=== PATIENT | male | born 2000 | race Caucasian/White ===

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

== ENCOUNTER 2024-12-21 11:09 | Emergency (ER) | payer BC, SELFPAY ==
--- OUTSIDE RECORDS SUMMARY | 2024-12-21 11:15 | XMS_ITS | Clinical Summary ---
Author Organization [facility] Address [address] [place] [address] Care Team Providers Care Product Support Rep Name Role Phone Thuy Naylor NP Primary Care Provider Santhosh Gray NP Unavailable Wei Iqbal MD Unavailable Allergies No known active allergies Medications famotidine (PEPCID) 10 mg tablet Take 1 tablet (10 mg total) by mouth 2 (two) times a day as needed for heartburn Active turmeric root extract 500 mg capsule Take 1 capsule by mouth daily Active mupirocin (BACTROBAN) 2 % ointment Coat inside of both nostrils twice daily for 5 days before surgery. 22 g 5 Active chlorhexidine (HIBICLENS) 4 % external liquidIndication s:Skin Disinfection Shower with soap daily for 5 days before surgery including the morning of. Do not use on face or genital area. 120 mL 5 Active gabapentin (NEURONTIN) 300 mg capsuleIndicatio ns:Chronic pain syndrome TAKE 1 CAPSULE(300 MG) BY MOUTH THREE TIMES DAILY 90 capsule 5 5 Active multivitamin with iron tablet Take 1 capsule by mouth daily Active buprenorphine (Belbuca) 300 mcg film buccal filmIndications: Chronic pain syndrome Apply 1 each (300 mcg total) to cheek every 12 (twelve) hours 60 each 1 5 02/02/20 25 Active HYDROcodone-acet aminophen (NORCO) 5-325 mg per tabletIndication s:Pain Take 1 tablet by mouth every 12 (twelve) hours as needed for pain 60 tablet 5 01/03/20 25 Active buprenorphine (Belbuca) 300 mcg film buccal filmIndications: Chronic pain syndrome Apply 1 each (300 mcg total) to cheek every 12 (twelve) hours 60 each 1 5 12/04/19 25 Discontin ued(Reord er) HYDROcodone-acet aminophen (NORCO) 5-325 mg per tabletIndication s:Pain Take 1 tablet by mouth every 12 (twelve) hours as needed for pain 60 tablet 5 12/04/19 25 Discontin ued(Thera py completed ) HYDROcodone-acet aminophen (NORCO) 5-325 mg per tabletIndication s:Pain Take 1 tablet by mouth every 12 (twelve) hours as needed for pain 60 tablet 5 12/04/19 25 Discontin ued(Thera py completed ) Active Problems Problem Noted Date Diagnosed Date Chronic pain syndrome 08/13/2024 Sacroiliitis 01/01/2023 Chronic bilateral low back pain without sciatica 09/06/2021 Resolved Problems Problem Noted Date Diagnosed Date Resolved Date Myalgia 11/21/2021 07/24/2024 Lumbar facet joint syndrome 03/21/2021 07/24/2024 Low back strain 11/17/2020 07/24/2024 Thoracic back pain 11/17/2020 5 Encounters Date Type Department Care Team Description 12/03/2024 2:15 PM CDT - 12/03/2024 11:59 PM CDT Hospital Encounter [facility] [address] [place] [id number] Santhosh Gray NP Sacroiliitis (Primary Dx); Chronic pain syndrome Discharge Disposition: Discharge to home or self care 11/17/2024 Telephone [facility] [address] [place] [id number] Clari Fernandez, RN PA for Belbuca approved til Nov 17, 2025 11/10/2024 Orders Only [facility] Medicine Neurosurgery [address] [facility] Medical Office Building [address] [place] [address] Yari Heart NP Low back pain, unspecified back pain laterality, unspecified chronicity, unspecified whether sciatica present (Primary Dx) 11/10/2024 Telephone [facility] Medicine Scheduling [address] [place] [address] Adelaide Doan 11/07/2024 Documentation [facility] [address] [place] [phone] Jay Fung NP referral (SI joint fusion) 11/05/2024 2:28 PM CDT - 11/05/2024 11:59 PM CDT Hospital Encounter [facility] [address] [place] [phone] Wei Iqbal MD Sacroiliitis Discharge Disposition: Discharge to home or self care 11/04/2024 3:14 PM CDT - 11/04/2024 4:47 PM CDT Emergency [facility] Emergency Department [address] [place] [address] Discharge Disposition: Left without being seen 10/23/2024 1:00 PM CDT - 10/23/2024 11:59 PM CDT Hospital Encounter [facility] [address] [place] [phone] Jay Fung NP Sacroiliitis (Primary Dx) Discharge Disposition: Discharge to home or self care 10/15/2024 Telephone [facility] [address] [place] [phone] Wei Iqbal MD 10/15/2024 Telephone [facility] [address] [place] [phone] Wei Iqbal MD 10/08/2024 2:30 PM CDT - 10/08/2024 11:59 PM CDT Hospital Encounter [facility] [address] [place] [phone] Santhosh Gray NP Chronic pain syndrome (Primary Dx); Sacroiliitis Discharge Disposition: Discharge to home or self care 09/23/2024 Telephone [facility] [address] [place] [phone] Talya Farley 09/22/2024 Telephone [facility] [id number] [place] [address] Tamanna Garza MA from Last 3 Months Surgical History Surgery Date Site/Laterality Comments APPENDECTOMY Medical History Medical History Date Comments GERD (gastroesophageal reflux disease) Chronic pain Motion sickness Sacroiliitis Social History Tobacco Use Types Packs/Day Years Used Date Smoking Tobacco: Never Passive Smoke Exposure: Never Smokeless Tobacco: Never Tobacco Cessation:Counseling Given: Not Answered Alcohol Use Standard Drinks/Week Comments Never 0 (1 standard drink = 0.6 oz pur e alcohol) AUDIT-C Answer Date Recorded Q1: How often do you have a drink containing alcohol? Never 10/13/2024 Q2: How many drinks containi ng alcohol do you have on a typical day when you are drinking? Patient does not drink Q3: How often do you have si x or more drinks on one occasion? Never 10/13/2024 Personal Safety Answer Date Recorded Have you ever been in or are you currently in a harmful physical or emotional relationship or is someone making you feel afraid or unsafe? 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 Gender Identity Not on file Sexual Orientation Not on file Last Filed Vital Signs Vital Sign Reading Time Taken Comments Blood Pressure 133/97 12/03/2024 2:23 PM CDT advised to discuss with PCP Pulse 73 12/03/2024 2:23 PM CDT Temperature 36.7 C (98 F) 11/05/2024 2:39 PM CDT Respiratory Rate 16 12/03/2024 2:23 PM CDT Oxygen Saturation 99% 12/03/2024 2:2 3 PM CDT Inhaled Oxygen Concentration - - Weight 81.6 kg (180 lb) 11/04/2024 3:34 PM CDT Height 177.8 cm (5' 10) 07/24/2024 7:5 0 AM CDT Body Mass Index 25.83 07/24/2024 7:50 AM CDT Plan of Treatment Health Maintenance Due Date Last Done Comments Depression Screening 2001 Hepatitis C Screening 2001 HPV Vaccines (2 - Male 3-dose series) 11/29/2018 11/01/2018 Regular Well Visit/Exam 18-64 2019 Meningococcal B Vaccine (2 of 2 - Bexsero SCDM 2-dose series) 05/02/2019 11/01/2018 DTaP/Tdap/Td Vaccine (7 - Td or Tdap) 09/13/2022 09/13/2012, 10/02/2005, 08/26/2002, Additional history exists Influenza Vaccine (#1) 2024 11/16/2020 Hepatitis B Screening Completed 08/26/2002 , 2001, 2001 Varicella Vaccines Completed 11/01/2018, 04/14/2002 Pneumococcal vaccine <65 Aged Out No longer eligible based on patient's age to complete this topic Procedures Procedure Name Priority Date/Time Associated Diagnosis Comments PAIN MGMT IMAGING SI JOINT BILATERAL ARTHROGRPHY Schedule Routine, Read Routine (OP Routine) 11/05/2024 3:20 PM CDT Sacroiliitis EGFR STAT 11/04/2024 3:39 PM CDT DIFFERENTIAL AUTO STAT 11/04/2024 3:3 9 PM CDT LIPASE STAT 11/04/2024 3:39 PM CDT COMPREHENSIVE METABOLIC PANEL STAT 11/04/2024 3:39 PM CDT CBC WITH AUTO DIFFERENTIAL STAT 11/04/2024 3:39 PM CDT from Last 3 Months Results * Imaging SI Joint Injection Bilateral ([id number]) (11/05/2024 3:20 PM CDT) Narrative RAD_PACS_CH - 11/05/2024 3:24 PM CDT The images from this study are not interpreted by Radiology. Please refer to the physician's procedure / OR operative note. us Jay Fung PLANT WORKER IMG PAIN MGMT PROCEDURES F inal Result RAD_PACS_CH * eGFR (11/04/2024 3:39 PM CDT) eGFR >90 >=60 mL/min/1. 73 m2 Comment: Interpretive Data Reference Interval Normal >/= 90 mL/min/1.73m2 Mildly decreased* 60 - 89 mL/min/1.73m2 Mildly to moderately decreased 45 - 59 mL/min/1.73m2 Moderately to severely decreased 30 - 44 mL/min/1.73m2 Severely decreased 15 - 29 mL/min/1.73m2 Kidney Failure < 15 mL/min/1.73m2 *Relative to young adult level Estimated glomerular filtration rate is determined by the 2020 CKD-EPI equation recommended by the National Kidney Foundation (A Unifying Approach to GFR Estimation: Recommendations of the NKF-ASK Task Force on Reassessing the Inclusion of Race in Diagnosing Kidney Disease, JASN 2020). The CKD-EPI equation should not be used for patients with unstable renal function and has not been validated in children and those over 70. Current interpretive data was last reviewed 2020. Blood 11/04/2024 3:39 PM CDT 11/04/2024 4:57 PM CDT us Yolis [facility] LAB BLOOD ORDERABLES Clementina clemente Result [facility] ([place]) [address] [facility] Department [place] [address] * Differential, auto (11/04/2024 3:39 PM CDT) Pathologist [facility] Neutrophil abs 2.46 1.50 - 6.50 K/cumm Imm gran abs 0.01 0.00 - 0.10 K/cumm [facility] ([facility]) Lymphocyte abs 2.68 0.80 - 3.30 K/cumm [facility] ([place]) Monocyte abs 0.41 0.20 - 0.80 K/cumm [facility] ([place]) Eosinophil abs 0.20 0.00 - 0.50 K/cumm [facility] ([place]) Basophil abs 0.10 0.00 - 0.10 K/cumm [facility] ([place]) Neutrophil pct 42.0 % [facility] ([place]) Comment: Interpretive Data Percent cell count reference ranges are not reported, since discordance with absolute values may lead to misinterpretation of CBC data. Current Interpretive Data was last revised on 2017. Imm gran pct 0.2 % [facility] ([place]) Comment: Interpretive Data Percent cell count reference ranges are not reported, since discordance with absolute values may lead to misinterpretation of CBC data. Current Interpretive Data was last revised on 2017. Lymphocyte pct 45.7 % [facility] ([place]) Comment: Interpretive Data Percent cell count reference ranges are not reported, since discordance with absolute values may lead to misinterpretation of CBC data. Current Interpretive Data was last revised on 2017. Monocyte pct 7.0 % [facility] ([place]) Comment: Interpretive Data Percent cell count reference ranges are not reported, since discordance with absolute values may lead to misinterpretation of CBC data. Current Interpretive Data was last revised on 2017. Eosinophil pct 3.4 % [facility] ([place]) Comment: Interpretive Data Percent cell count reference ranges are not reported, since discordance with absolute values may lead to misinterpretation of CBC data. Current Interpretive Data was last revised on 2017. Basophil pct 1.7 % [facility] ([place]) Comment: Interpretive Data Percent cell count reference ranges are not reported, since discordance with absolute values may lead to misinterpretation of CBC data. Current Interpretive Data was last revised on 2017. Blood 11/04/2024 3:39 PM CDT 11/04/2024 4:57 PM CDT us Yolis [facility] LAB BLOOD ORDERABLES Clementina l Result [facility] ([place]) [address] [facility] Department [place] [address] * CBC with auto differential (11/04/2024 3:39 PM CDT) WBC 5.86 3.80 - 9.90 K/cumm Hgb 15.5 13.0 - 17.5 g/dL [facility] ([place]) Hct 44.7 38.9 - 50.3 % [facility] ([place]) Plt 255 150 - 400 K/cumm [facility] ([place]) MPV 9.7 9.1 - 12.3 fL [facility] ([place]) RBC 5.11 4.30 - 5.80 M/cumm [facility] ([place]) MCV 87.5 81.3 - 96.4 fL [facility] ([place]) MCH 30.3 27.1 - 33.3 pg [facility] ([place]) MCHC 34.7 32.3 - 35.7 g/dL [facility] ([place]) RDW CV 11.9 11.1 - 14.9 % [facility] ([place]) RDW SD 38.3 35.7 - 48.1 fL [facility] ([place]) NRBC abs 0.00 0.00 - 0.01 K/cumm [facility] ([place]) Blood 11/04/2024 3:39 PM CDT 11/04/2024 4:57 PM CDT Yolis [facility] LAB BLOOD ORDERABLES Clementina l Result [facility] ([place]) [address] [facility] [place] [address] * Lipase (11/04/2024 3:39 PM CDT) Lipase 37 10 - 99 Units/L [facility] ([place]) Blood 11/04/2024 3:39 PM CDT 11/04/2024 4:57 PM CDT Yolis [facility] LAB BLOOD ORDERABLES Clementina l Result [facility] ([place]) [address] [facility] [place] [address] * (ABNORMAL) Comprehensive metabolic panel (11/04/2024 3:39 PM CDT) Sodium 142 135 - 145 mmol/L [facility] ([place]) Potassium, pl 4.1 3.3 - 4.9 mmol/L [facility] ([place]) Chloride 105 97 - 110 mmol/L [facility] ([place]) CO2 24 22 - 32 mmol/L [facility] ([place]) Anion gap 13 2 - 15 mmol/L [facility] ([place]) BUN 9 6 - 25 mg/dL [facility] ([place]) Creatinine 0.75(L) 0.80 - 1.30 mg/dL [facility] ([place]) Glucose 89 70 - 199 mg/dL [facility] ([place]) Comment: Interpretive Data Fasting glucose >/= 126 mg/dl is diagnostic for diabetes. Fasting is defined as no caloric intake for at least 8 hours. Fasting glucose between 100 mg/dl to 125 mg/dl is diagnostic of prediabetes. In a patient with classic symptoms of hyperglycemia or hyperglycemic crisis, a random glucose >/= 200 mg/dl is diagnostic for diabetes. In the absence of unequivocal hyperglycemia, results should be confirmed by repeat testing. The classification and Diagnosis of Diabetes Diabetes Care 202; 46: S19-S40. Current interpretive data was last revised 2022. Calcium 9.8 8.5 - 10.3 mg/dL [facility] ([place]) Bilirubin, total 0.7 0.1 - 1.2 mg/dL [facility] ([place]) Protein, pl 7.2 6.5 - 8.5 g/dL [facility] ([place]) Albumin 5.0 3.5 - 5.0 g/dL [facility] ([place]) Alk phos 68 40 - 130 Units/L [facility] ([place]) ALT 27 7 - 55 Units/L [facility]) AST 23 10 - 50 Units/L [facility] ([place]) Blood 11/04/2024 3:39 PM CDT 11/04/2024 4:57 PM CDT us Yolis [facility] LAB BLOOD ORDERABLES Clementina clemente Result [facility] ([place]) [address] [facility] Department [place] [address] from Last 3 Months Insurance BLUE ACCESS OOS BLUE ACCESS OOS BLUE ACCESS OOS Care Teams Product Support Rep Relationship Specialty Start Date End Date Thuy Naylor NP [address] [place] [address] PCP - General 03/31/21 [place] [address] [address] [place] [address] Nurse Practitioner Pain Management 11/14/23 [place] [address] [address] [place] [address] Consulting Physician Pain Management 10/23/24
--- OUTSIDE RECORDS SUMMARY | 2024-12-21 11:15 | XMS_ITS | Clinical Summary ---
Author Organization [facility] Address [address] [facility] [place] [address] Care Team Providers Care Parts Technician Name Role Phone Thuy Naylor BRADEN-SHOPPER MARKETING MANAGER Primary Care Provider [phone] Source Comments [facility],non-owned Affiliates and Associated Physician Practices is amultiple site organization consisting of ambulatory clinics and hospital sitesin [place], [place], [place] and [place]. This disclosure is being madepursuant to the Care Everywhere program and may not contain all information available regarding this patient. Last updated 17.[facility]apper Allergies No known active allergies Medications * Be aware that medications may not be up to date on this document. Alwaysverify current medications with the patient. 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 Gender Identity Not on file Sexual Orientation Not on file Last Filed Vital Signs Vital Sign Reading Time Taken Comments Blood Pressure 122/81 08/03/2022 10:01 AM CDT Pulse 65 08/03/2022 10:01 AM CDT Temperature 36.1 C (97 F) 08/03/2022 10:01 AM CDT Respiratory Rate 16 04/15/2019 12:30 PM GAS WELDING MACHINE OPERATOR Oxygen Saturation 97% 08/03/2022 10:01 AM CDT Inhaled Oxygen Concentration - - Weight 83.9 kg (185 lb) 08/03/2022 10:01 AM CDT Height 182.9 cm (6') 08/03/2022 10:01 AM CDT Body Mass Index 25.09 08/03/2022 10:01 AM CDT Plan of Treatment Health Maintenance Due Date Last Done Comments HIV SCREENING 02/08/2016 HPV VACCINE (1 - Male 3-dose series) 02/08/2016 MENINGOCOCCAL (Group B) VACC INE SHARED DECISION-MAKING (1 of 2 - Standard) 2017 HEPATITIS C SCREENING 02/03/2019 DTAP/TDAP/TD VACCINES (1 - Tdap) 02/08/2020 HEPATITIS B VACCINE (1 of 3 - 19+ 3-dose series) 02/08/2020 DEPRESSION SCREENING 02/20/2024 COVID-19 VACCINE (1 - 2023-2 5 season) 2024 INFLUENZA VACCINE (#1) 2024 ZOSTER VACCINE (1 of 2) 2051 HIB VACCINE Aged Out No longer eligi ble based on patient's age to complete this topic MENINGOCOCCAL GROUPS A/C/Y/W VACCINE Aged Out No longer eligible b ased on patient's age to complete this topic PNEUMOCOCCAL VACCINE Aged Out No long er eligible based on patient's age to complete this topic Insurance [facility] Care Teams Parts Technician Relationship Specialty Start Date End Date Thuy Naylor APRN-MIKIE [address] [place] [address] PCP - General 06/16/22
[2024-12-21 11:16] VITALS: BP 141/97; PULSE 71; RESP 16; TEMP 37.1; O2SAT 100
--- OUTSIDE RECORDS SUMMARY | 2024-12-21 11:16 | XMS_ITS | Clinical Summary ---
Author Organization [facility] Address [address] [place] [address] Phone Care Team Providers Care Sales Systems Engineer Name Role Phone Thuy Naylor APRN, CNP Primary Care Provider [phone] Herman Parikh MD Unavailable Allergies No known active allergies Medications famotidine (PEPCID) 10 MG Tablet Take 10 mg by mouth 2 times daily as needed. Active Belbuca 300 MCG FILM 1 Each by Other route every 12 hours. To cheek Active Turmeric (CurcuPlex-95) 500 MG Capsule Take 2 Capsules by mouth daily. Active acetaminophen (TYLENOL) 325 MG Tablet Take 1 Tablet by mouth every 6 hours as needed for Fever (for temperature greater than 100.4 F.). Do not exceed 4000 mg of acetaminophen in 24 hour from all sources. 07/26/19 24 Active oxyCODONE (ROXICODONE) 5 MG TabletIndication s:Acute appendicitis Take 1 Tablet by mouth every 4 hours as needed for Severe pain. 10 Tablet 07/26/19 24 Active Additional Information Patient not taking.Reported on 08/08/2023 Active Problems Problem Noted Date Diagnosed Date Acute appendicitis 07/25/2023 Encounters Date Type Department Care Team Description 11/02/2024 6:26 PM CDT - 11/02/2024 10:06 PM CDT Emergency [facility] Emergency [address] [place] [address] Phill Cloud MD Abdominal pain Discharge Disposition: Discharged to home or Selfcare 11/02/2024 Travel from Last 3 Months Family History Medical History Relation Name Comments Heart Attack Father High Cholesterol Father Hypertension Father Diabetes Mother Relation Name Status Comments Father Alive Half-Brother Alive Mother Alive Social History Tobacco Use Types Packs/Day Years Used Date Smoking Tobacco: Never Smokeless Tobacco: Never Alcohol Use Standard Drinks/Week Comments Never 0 (1 standard drink = 0.6 oz pur e alcohol) [facility] Utilities Answer Date Recorded In the past 12 months has e electric, gas, oil, or water [employer] threatened to shut off services in your home? Patient declined 07/25/2023 Social Connection and Isolation Panel Answer Date Recorded In a typical week, how many times do you talk on the phone with family, friends, or neighbors? Patient declined 07/25/2023 How often do you get togethe r with friends or relatives? Patient declined 07/25/2023 How often do you attend worship or samaritan serv ices? Patient declined 07/25/2023 Do you belong to any clubs o r organizations such as worship groups, unions, fraternal or athletic groups, or school groups? Patient declined 07/25/2023 How often do you attend meet ings of the clubs or organizations you belong to? Patient declined 07/25/2023 Are you , , di vorced, , never , or living with a partner? Patient declined 07/25/2023 AUDIT-C Answer Date Recorded Q1: How often do you have a drink containing alc ohol? Patient declined 07/25/2023 Q2: How many drinks containi ng alcohol do you have on a typical day when you are drinking? Patient declined 07/25/2023 Q3: How often do you have si x or more drinks on one occasion? Patient declined 07/25/2023 Overall Financial Resource Strain (CARDIA) Answe r Date Recorded How hard is it for you to pa y for the very basics like food, housing, medical care, and heating? Patient declined 07/25/2023 [facility] Occupat ional Health - Occupational Stress Questionnaire Answer Date Recorded Do you feel stress - tense, restless, nervous, or anxious, or unable to sleep at night because your mind is troubled all the time - these days? Patient declined 07/25/2023 Exercise Vital Sign Answer Date Recorde d On average, how many days pe r week do you engage in moderate to strenuous exercise (like a brisk walk)? Patient declined On average, how many minutes do you engage in exercise at this level? Patient declined 07/25/2023 Hunger Vital Sign Answer Date Recorded Within the past 12 months, y ou worried that your food would run out before you got the money to buy more. Patient declined Within the past 12 months, t he food you bought just didn't last and you didn't have money to get more. Patient declined 06/2023 PRAPARE - Transportation Answer Date Re corded In the past 12 months, has l ack of transportation kept you from medical appointments or from getting medications? Patient declined 07/25/2023 In the past 12 months, has l ack of transportation kept you from meetings, work, or from getting things needed for daily living? Patient declined 07/25/2023 Housing Stability Vital Sign Answer Omari e Recorded In the last 12 months, was t here a time when you were not able to pay the mortgage or rent on time? Patient declined 07/25/19 24 In the last 12 months, how many places have you lived? 1 07/25/2023 In the last 12 months, was t here a time when you did not have a steady place to sleep or slept in a fdc (including now)? Patient declined 07/25/2023 Sex and Gender Information Value Date Recorded Sex Assigned at Not on file Legal Sex Male 11:06 PM CDT Gender Identity Not on file Sexual Orientation Not on file Last Filed Vital Signs Vital Sign Reading Time Taken Comments Blood Pressure 150/89 11/02/2024 9:45 PM CDT Pulse 63 11/02/2024 10:00 PM CDT Temperature 36.7 C (98 F) 11/02/2024 6:32 PM CDT Respiratory Rate 14 11/02/2024 9:45 PM CDT Oxygen Saturation 100% 11/02/2024 10:00 PM CDT Inhaled Oxygen Concentration - - Weight 82.3 kg (181 lb 7 oz) 11/02/2024 6:32 PM CDT Height 180.3 cm (5' 11) 11/02/2024 6:32 PM CDT Body Mass Index 25.31 11/02/2024 6:32 PM CDT Plan of Treatment Health Maintenance Due Date Last Done Comments Hepatitis C Virus (HCV) Screening 2001 Human Papillomavirus (HPV) Immunization (2 - Male 3-dose series) 11/29/2018 11/01/2018 Meningococcal B Immunization (2 of 2 - Bexsero SCDM 2-dose series) 05/02/2019 11/01/2018 Influenza Immunization (#1) 2024 11/16/2020 SARS-COV-2 Immunization (3 - season) 2024 06/24/2020, 06/03/2020 Respiratory Syncytial Virus (RSV) Immunization (Adult) (1 - 1-dose 75+ series) 02/08/2076 Hepatitis B Immunization Completed 003, 2001, 2001 Measles Mumps Rubella (MMR) Immunization Discontinued 10/02/2005, 04/14/2002 Polio (IPV) Immunization Discontinued 006, 08/26/2002, 2001, Additional history exists DTaP/Tdap/Td Immunization Discontinued 2012, 10/02/2005, 08/26/2002, Additional history exists TdaP Immunization Completed 09/13/2012 Meningococcal Immunization (ACWY) Completed 11/01/2018 Varicella Immunization Discontinued 11/01/2018, 2002 Pneumococcal Immunization Combined Aged Out No longer eligible based on patient's age to complete this topic Rotavirus Immunization Aged Out No lo nger eligible based on patient's age to complete this topic Procedures Procedure Name Priority Date/Time Associated Diagnosis Comments CT ABDOMEN PELVIS W/ CONTRAST Stat with Interpretation 11/02/2024 8:16 PM CDT URINALYSIS REFLEX IF INDICATED BY ABNORMAL RESULTS STAT 11/02/2024 7:24 PM CDT CBC WITH AUTO DIFFERENTIAL STAT 11/02/2024 6:52 PM CDT CMP (COMPREHENSIVE METABOLIC PANEL) STAT 11/02/2024 6:52 PM CDT COMPLETE BLOOD COUNT (CBC) WITH DIFF STAT 11/02/2024 6:52 PM CDT EKG 12 LEAD STAT 11/02/2024 6:46 PM CDT EKG SCAN 11/02/2024 12:[address] - ABDOMEN/PELVIS 11/02/2024 12:00 AM CDT from Last 3 Months Results * CT ABDOMEN PELVIS W/ CONTRAST (11/02/2024 8:16 PM CDT) Anatomical Region Laterality Modality Abdomen N/A Computed Tomogra phy 11/02/2024 8:16 PM CDT Impressions 11/02/2024 8:43 PM CDT IMPRESSION: 1. No acute abnormality. 2. Prior appendectomy. The preliminary report and any related communication were provided by [facility]'s After Hours service Bereket Arce, as documented in the medical record. Narrative 11/02/2024 8:43 PM CDT DICTATING PHYSICIAN: Charles Peng D.O. EXAM DATE: 11/02/2024 8:16 PM EXAM: CT ABDOMEN PELVIS W/ CONTRAST COMPARISON: 07/25/2023 INDICATION: Abdominal pain, acute, nonlocalized, severe kidney pain, normal labs, Bilateral lower abdominal pain x 3 days. H/o gerd, kidney stones, appendectomy. PROCEDURE: 100 mL of Isovue 300 was injected IV. Radiation dose reduction technique(s) were used. DLP = 513 FINDINGS: ABDOMEN: Liver: Normal size and homogeneous parenchyma. Gallbladder: No calcified gallstones. No bile duct dilatation. Spleen: Normal. Adrenals: Normal. Pancreas: No mass or adjacent stranding. Normal caliber duct. Aorta/IVC: Normal caliber. Kidneys/Ureters/Bladder: No calculus, mass or hydronephrosis. PELVIS: Reproductive Organs: No pelvic mass. Bowel: No dilation or wall thickening. Prior appendectomy. Mesentery: No adenopathy. Normal splanchnic veins. Nonspecific very subtle haziness of the mesenteric fat in the right lower abdomen anterior and medial to the cecum/ascending colon and likely sequela of prior surgery. Peritoneum: No free fluid. Lower chest: Lung bases are clear. Bones/Body wall: No destructive osseous lesion. No acute osseous abnormality. Defect within the inferior right rectus abdominis muscle likely due to prior trocar access during appendectomy. Procedure Note Charles Peng, DO - 11/02/2024 DICTATING PHYSICIAN: Charles Peng D.O. EXAM DATE: 11/02/2024 8:16 PM EXAM: CT ABDOMEN PELVIS W/ CONTRAST COMPARISON: 07/25/2023 INDICATION: Abdominal pain, acute, nonlocalized, severe kidney pain,normal labs, Bilateral lower abdominal pain x 3 days. H/o gerd, kidneystones, appendectomy. PROCEDURE: 100 mL of Isovue 300 was injected IV. Radiation dose reductiontechnique(s) were used. DLP = 513 FINDINGS: ABDOMEN: Liver: Normal size and homogeneous parenchyma. Gallbladder: No calcified gallstones. No bile duct dilatation. Spleen: Normal. Adrenals: Normal. Pancreas: No mass or adjacent stranding. Normal caliber duct. Aorta/IVC: Normal caliber. Kidneys/Ureters/Bladder: No calculus, mass or hydronephrosis. PELVIS: Reproductive Organs: No pelvic mass. Bowel: No dilation or wall thickening. Prior appendectomy. Mesentery: No adenopathy. Normal splanchnic veins. Nonspecific very subtlehaziness of the mesenteric fat in the right lower abdomen anterior andmedial to the cecum/ascending colon and likely sequela of prior surgery. Peritoneum: No free fluid. Lower chest: Lung bases are clear. Bones/Body wall: No destructive osseous lesion. No acute osseousabnormality. Defect within the inferior right rectus abdominis musclelikely due to prior trocar access during appendectomy. IMPRESSION: 1. No acute abnormality. 2. Prior appendectomy. The preliminary [facility] Bereket Arce, as documented in the medicalrecord. Phill Cloud MD IMG CT ORDERABLES Final Result * Urinalysis w/ Reflex (11/02/2024 7:24 PM CDT) SPECIFIC GRAVITY 1.015 1.003 - 1.030 11/02/2024 7:49 PM CDT [facility] URINE PH 8.0 5.0 - 9.0 11/02/2024 7:49 PM CDT [facility] WBC ESTERASE Negative Negative 11/02/2024 7:49 PM CDT [facility] NITRITE Negative Negative 11/02/2024 7:49 PM CDT [facility] PROTEIN, RANDOM URINE Negative Negative 11/02/2024 7:49 PM CDT [facility] URINE GLUCOSE, QUAL Negative Negative 11/02/2024 7:49 PM CDT [facility] URINE KETONES Negative Negative 11/02/2024 7:49 PM CDT [facility] UROBILINOGEN Normal Normal mg/dL 11/02/2024 7:49 PM CDT [facility] URINE BLOOD Negative Negative emma/ul 11/02/2024 7:49 PM CDT [facility] URINALYSIS COLOR Yellow 11/03/19 7:49 PM CDT [facility] URINALYSIS CLARITY Clear 11/02/2024 7:49 PM CDT [facility] Urine URINE SPECIMEN / Unknown Non-Phlebotomy Collection / Unknown 11/02/2024 7:24 PM CDT 11/02/2024 7:35 PM CDT us Phill Cloud MD URINE ORDERABLES Final Result [facility] [address] [place] [address] * (ABNORMAL) CBC with Auto Differential (11/02/2024 6:52 PM CDT) WBC 6.62 4.00 - 12.00 10(3)/mcL 11/02/2024 7:08 PM CDT [facility] RBC 4.78 4.40 - 5.80 10(6)/mcL 11/02/2024 7:08 PM CDT [facility] HEMOGLOBIN (HGB) 14.4 13.0 - 16.5 g/dL 11/02/2024 7:08 PM CDT [facility] HEMATOCRIT (HCT) 42.1 38.0 - 50.0 % 11/02/2024 7:08 PM CDT [facility] MCV 88.1 82.0 - 96.0 fL 11/02/2024 7:08 PM CDT [facility] MCH 30.1 26.0 - 32.0 pg 11/02/2024 7:08 PM CDT [facility] MCHC 34.2 31.0 - 36.0 g/dL 11/02/2024 7:08 PM CDT [facility] PLATELET COUNT 249 140 - 440 10(3)/mcL 11/02/2024 7:08 PM CDT [facility] RDW 11.9 11.8 - 15.5 % 11/02/2024 7:08 PM CDT [facility] MPV 9.6 8.0 - 12.6 fL 11/02/2024 7:08 PM CDT [facility] NEUTROPHILS 61.1 40.0 - 68.0 % 11/02/2024 7:08 PM CDT [facility] LYMPHOCYTES 30.5 19.0 - 49.0 % 11/02/2024 7:08 PM CDT [facility] MONOCYTES 6.2 3.0 - 13.0 % 11/02/2024 7:08 PM CDT [facility] EOSINOPHILS 0.8 0.0 - 8.0 % 11/02/2024 7:08 PM CDT [facility] BASOPHILS 1.2(H) 0.0 - 1.0 % 11/02/2024 7:08 PM CDT [facility] IMMATURE GRANULOCYTE 0.2 0.0 - 0.4 % 11/02/2024 7:08 PM CDT [facility] ABSOLUTE NEUTROPHILS 4.05 1.40 - 5.30 10(3)/mcL 11/02/2024 7:08 PM CDT [facility] ABSOLUTE LYMPHOCYTES 2.02 0.90 - 3.30 10(3)/mcL 11/02/2024 7:08 PM CDT [facility] ABSOLUTE MONOCYTES 0.41 0.10 - 0.90 10(3)/[facility] 11/02/2024 7:08 PM CDT [facility] ABSOLUTE EOSINOPHIL 0.05 0.00 - 0.50 10(3)/[facility] 11/02/2024 7:08 PM CDT [facility] ABSOLUTE BASOPHILS 0.08 0.00 - 0.10 10(3)/[facility] 11/02/2024 7:08 PM CDT [facility] ABSOLUTE IMMATURE GRANULOCYTE 0.01 0.00 - 0.03 10 (3) [facility]. 11/02/2024 7:08 PM CDT [facility] NRBC PER 100 WBC 0 11/03/19 25 7:08 PM CDT [facility] Blood Venipuncture / Unknown 11/02/2024 6:52 PM CDT 11/02/2024 7:05 PM CDT us Phill Cloud MD HEMATOLOGY ORDERABLES Final Resu lt [facility] [address] [place] [address] * (ABNORMAL) CMP (11/02/2024 6:52 PM CDT) SODIUM 142 136 - 145 mmol/L 11/02/2024 7:31 PM CDT [facility] POTASSIUM 4.0 3.5 - 5.1 mmol/L 11/02/2024 7:31 PM CDT [facility] CHLORIDE 108(H) 98 - 107 mmol/L 11/02/2024 7:31 PM CDT [facility] CO2, VENOUS 23 22 - 30 mmol/L 11/02/2024 7:31 PM CDT [facility] ANION GAP 15.0 <18.0 mmol/L 11/02/2024 7:31 PM CDT [facility] GLUCOSE 91 70 - 99 mg/dL 11/02/2024 7:31 PM CDT [facility] BUN 8(L) 9 - 21 mg/dL 11/02/2024 7:31 PM T [facility] CREATININE, BLOOD 0.69(L) 0.70 - 1.30 mg/dL 11/02/2024 7:31 PM T [facility] BUN/CREATININE RATIO 12 12 - 20 ratio 11/02/2024 7:31 PM T [facility] TOTAL PROTEIN 6.9 6.0 - 8.0 g/dL 11/02/2024 7:31 PM T [facility] ALBUMIN 4.9 3.5 - 5.0 g/dL 11/02/2024 7:31 PM [facility] A/G RATIO 2.5(H) 1.0 - 2.2 11/02/2024 7:31 PM [facility] CALCIUM 9.0 8.7 - 10.5 mg/dL 11/02/2024 7:31 PM T [facility] T BILI 0.7 0.2 - 1.2 mg/dL 11/02/2024 7:31 PM [facility] SGOT (AST) 28 <43 U/L 11/02/2024 7:31 PM [facility] SGPT (ALT) 27 <56 U/L 11/02/2024 7:31 PM [facility] ALKALINE PHOSPHATASE 57 40 - 150 U/L 11/02/2024 7:31 PM T [facility] GFR, ESTIMATED >60 >=60 11/02/2024 7:31 PM [facility] Comment: Creatinine Clearance is the preferred criteria for selecting drug dose adjustments in renally impaired patients. The GFR is provided as additional pertinent clinical information. GFR is reported in mL/min/1.73 sq m. Calculation based on the 2020 Chronic Kidney Disease Epidemiology Collaboration (CKD-EPI) equation refit without adjustment for race. GFR, EST. >60 >=60 09/14/2 025 7:31 PM CDT [facility] Comment: Creatinine Clearance is the preferred criteria for selecting drug dose adjustments in renally impaired patients. The GFR is provided as additional pertinent clinical information. GFR is reported in mL/min/1.73 sq m. Calculation based on the 2009 Chronic Kidney Disease Epidemiology Collaboration (CKD-EPI). GFR, EST. NONAFRICAN >60 >=60 11/02/2024 7:31 PM CDT [facility] Comment: Creatinine Clearance is the preferred criteria for selecting drug dose adjustments in renally impaired patients. The GFR is provided as additional pertinent clinical information. GFR is reported in mL/min/1.73 sq m. Calculation based on the 2009 Chronic Kidney Disease Epidemiology Collaboration (CKD-EPI). Blood Venipuncture / Unknown 11/02/2024 6:52 PM CDT 11/02/2024 7:05 PM CDT Phill Cloud MD CHEMISTRY ORDERABLES Final Resul t [facility] [address] [place] [address] * EKG 12 LEAD (11/02/2024 6:46 PM CDT) Ventricular Rate 62 BPM EXTERNAL EKG Atrial Rate 62 BPM EXTERNAL EKG P-R Interval 148 ms EXTERNAL EKG QRS Duration 90 ms EXTERNAL EKG Q-T Duration 402 ms EXTERNAL EKG QTC CALCULATION 408 ms EXTERNAL EKG P Norris 35 degrees EXTERNAL EKG R Norris 61 degrees EXTERNAL EKG T Norris 21 degrees EXTERNAL EKG 11/02/2024 6:46 PM CDT Impressions EXTERNAL EKG - 11/03/2024 9:19 AM CDT Normal sinus rhythm Normal ECG No previous ECGs available Confirmed by Mario Truong ([id number]) on 11/03/2024 9:19:04 AM Narrative Procedure Note Mario Truong MD - 11/03/2024 IMPRESSION: Normal sinus rhythm Normal ECG No previous ECGs available Confirmed by Mario Truong ([id number]) on 11/03/2024 9:19:04 AM us Phill Cloud MD IMG ECG ORDERABLES Final Result Performing Organization Address City/[facility]/ZIP Co de Phone Number EXTERNAL EKG * EKG SCAN (11/02/2024 12:00 AM CDT) 11/02/2024 us Provider Scan IMG ECG ORDERABLES Final Result RESULTING AGENCY * CT - ABDOMEN/PELVIS (11/02/2024 12:00 AM CDT) 11/02/2024 us Provider Scan IMG CT ORDERABLES Final Result Performing Organization Address City/[facility] Co de Phone Number SCAN from Last [address] [address] Advance Directives * Full Code (Latest Code Status on File) Date Activated Date Inactivated Comments 07/25/2023 10:59 PM 07/26/2023 8:47 PM CPR-Full Bibi tment: FULL ARREST: Attempt Resuscitation/CPR wit intubation and mechanical ventilation. PRE-ARREST: Use entire range of life support measures to stabilize the patient. Care Teams Sales Systems Engineer Relationship Specialty Start Date End Date Thuy Naylor APRN, CNP PCP - General Family Medicine 01/29/20 Herman Parikh MD [address] [place] [address] Consulting Physician Colon and Rectal Surgery 08/07/23
--- NOTE | 2024-12-21 11:50 | ED_ITS ---
HPI - Dental/Oral General Chief complaint: Dental/Oral Stated complaint: Tooth infection Time Seen by Provider: 12/21/24 11:40 Source: patient and RN notes reviewed Mode of arrival: ambulatory Limitations: no limitations History of Present Illness HPI Narrative: 24-year-old male patient presents [facility] complaining of right lower dental pain. Patient pain started 2-3 days ago. Patient has a wisdom tooth impacted into his right lower mouth. Patient does not currently have a dentist. Patient reports pain in sign to his right side of his face. Patient reports pain with eating. Patient denies any difficulty clearing secretions, dysphagia, difficulty breathing, fevers, body aches, chills, or any other symptoms. Related Data Home Medications ?Medication ?Instructions ?Recorded ?Confirmed ?Last Taken ?Type buprenorphine HCl 300 mcg buccal mcg buccal 12/21/24 Unknown History film (Belbuca) gabapentin 300 mg capsule mg 12/21/24 Unknown History hydrocodone 5 mg-acetaminophen 325 tablet 12/21/24 Un known History mg tablet Allergies Allergy/AdvReac Type Severity Reaction Status Date / Time No Known Allergies Allergy Verified 12/21/24 11:21 Review of Systems Review of Systems: CONSTITUTIONAL: Denies fever, chills, or sweats. EYES: Denies visual changes, redness, or discharge. ENT: Denies rhinorrhea, congestion, sore throat, difficulty clearing secretions, dysphasia, or otalgia. MOUTH: Positive for dental pain. CARDIOVASCULAR: Denies chest pain, palpitations, or edema. RESPIRATORY: Denies cough or dyspnea. GASTROINTESTINAL: Denies abdominal pain, nausea, vomiting, or diarrhea. GENITOURINARY: Denies dysuria or hematuria. SKIN: Denies rash or itching. MUSCULOSKELETAL: Denies back pain, joint pain, or myalgia. NEUROLOGIC: Denies headache, numbness, or weakness. PSYCHIATRIC: Denies anxiety or depression. All other systems reviewed are negative, except as documented in HPI. [facility] Past Medical History Medical History No pertinent family history No significant past medical history Surgical History Surgical History No significant past surgical history Comments At the time of my signature, I reviewed and agree with the nursing past medical, surgical, social, and family history. There is no relevant family history pertinent to the patient complaint. Exam Narrative: GENERAL: This is a well-nourished, well-developed adult, in no apparent distress. They are non ill-appearing, nontoxic appearing. HEAD: normocephalic, atraumatic. EYES: Sclera clear/white. Conjunctiva normal. Vision is grossly intact. Extraocular movements intact EARS: External ears normal,.Hearing grossly intact. NOSE: External nose normal THROAT: Mucous membranes moist, posterior pharynx clear, without erythema or swelling. Uvula midline. OROPHARYNX: Right-sided facial swelling. No gross tooth decay. Although gingivitis. Third molar present right lower gum. It is erythematous and tender to palpate. No area of fluctuance or induration, no exudate. Tongue midline. No pain or swelling of the tongue. There is pain in the right TMJ. No trismus. NECK: Neck supple, non-tender without lymphadenopathy, masses or thyromegaly. CARDIOVASCULAR: Regular rate and rhythm RESPIRATORY: Respiratory rate normal, respiratory effort nonlabored, no respiratory distress SKIN: warm, Dry, intact with no suspicious lesions or rash, good texture and turgor. NEURO: awake, alert, and oriented to person, place and time. There were no obvious focal neurologic abnormalities. EXTREMITIES: No joint tenderness, effusion, or edema noted. BACK: Nontender without deformity. No CVA tenderness. Course Course Emergency Course: Portions of this record may have been created with voice recognition software Level of Care: Express Care Visit Vital Signs Vital signs: Vital Signs Temperature 98.8 F 12/21/24 11:16 Pulse Rate 71 12/21/24 11:16 Respiratory Rate 16 12/21/24 11:16 Blood Pressure 141/97 H 12/21/24 11:16 Pulse Oximetry 100 12/21/24 11:16 Oxygen Delivery Room Air 12/21/24 11:16 Temperature 98.8 F 12/21/24 11:16 Pulse Rate 71 12/21/24 11:16 Respiratory Rate 16 12/21/24 11:16 Blood Pressure 141/97 H 12/21/24 11:16 Pulse Oximetry 100 12/21/24 11:16 Oxygen Delivery Room Air 12/21/24 11:16 Reviewed MDM - Dental/Oral MDM Narrative Medical decision making narrative: Patient's pain swelling to his right lower mouth located near his wisdom tooth. Patient has right-sided facial swelling of the right TMJ. Given pain and swelling will treat with Augmentin. Patient follow-up with dentist as soon as possible. Discussed physical exam findings. Advised supportive measures and signs/symptoms to go to the ER. Pt is appropriate for outpt treatment and f/u. Differential Diagnosis Differential diagnosis: Likely gingival abscess, dental caries, toothache, dental abscess, fracture of tooth and other (Tooth impaction) Critical Care Time Critical Care Time Critical Care Time: No Discharge Plan Discharge Clinical Impression: Impacted third molar tooth Patient Disposition: Home Condition: Stable Instructions: Antibiotic Form, Dental Abscess (ED) Additional Instructions: Take the antibiotics as directed. You may alternate Tylenol and ibuprofen as needed for pain. Follow instructions on the bottle. [place] your teeth and floss at least 2 times a day. You may use mouthwash after each brushing as well. Follow-up with dentist next week. He developed worsening swelling, fevers, difficulty swallowing or breathing, difficulty opening her jaw, swelling under the tongue, or any other concerns please go to the ER immediately. Patient Language: Mauritian Prescriptions: New amoxicillin-pot clavulanate 875-125 mg tablet 1 tablet PO Q12H 7 Days Qty: 14 0RF No Action hydrocodone-acetaminophen 5-325 mg tablet gabapentin 300 mg capsule buprenorphine HCl [Belbuca] 300 mcg film BUCCAL Follow-up/Referrals: Dayday,Thuy Navarrete APN [Primary Care Provider, Unknown] Stand Alone Forms: Work/School Release IP Time of Disposition: 11:42
== END 2024-12-21 11:46 | disposition home or self-care (01) ==
PROVIDERS: PCP Nurse Practitioner Family
DX: K01.1 Impacted teeth (principal)
CPT/HCPCS: 99213; G0463